=== PATIENT | female | born 1965 | race Caucasian/White ===

== ENCOUNTER → 2022-05-10 | Outpatient (CLI) | payer OTHER | LOC: M PLAIMG 09:40 | PROVIDERS: ATTEND Internal Medicine Pulmonary Disease | DX: R91.8 Other nonspecific abnormal finding of lung field (principal) ==

== ENCOUNTER 2022-06-01 06:10 | Day surgery (SDC) | payer OTHER ==
[~2022-06-01] VITALS: Ht 170.2 cm; Wt 50.8 kg
[~2022-06-01 06:10] MED LIST: AZEL1SPR3 NARES; LEVOTAB10 PO; QC F0.52 PO; VITA-243 PO
[2022-06-01] MEDS ORDERED: LR 1,000 ML IV SCH ×2 (06:35→08:30)
[2022-06-01] MEDS ORDERED: LIDOCAINE 1% SDV 5ML VIAL SC PRN (06:35)
[2022-06-01] MEDS ORDERED: EPINEPHrine 1MG/10ML SYRINGE 1.5IN As Ordered ONE (07:11)
[2022-06-01] MEDS ORDERED: CETACAINE SPRAY 5GM As Ordered ONE (07:11)
[2022-06-01] MEDS ORDERED: THROMBIN 5,000 UNITS VIAL As Ordered ONE (07:11)
[2022-06-01] MEDS ORDERED: LIDOCAINE 2% 100MG/5ML SDV (FOR ANES.) As Ordered ONE (08:01)
[2022-06-01] MEDS ORDERED: fentaNYL 100 MCG/2 ML INJECTION As Ordered ONE (08:01)
[2022-06-01] MEDS ORDERED: propofoL 200 MG/20 ML VIAL As Ordered ONE (08:01)
[2022-06-01] MEDS ORDERED: MIDAZOLAM INJ 2MG/2ML VIAL As Ordered ONE (08:01)
[2022-06-01] MEDS ORDERED: ONDANSETRON 4MG 2ML VIAL As Ordered ONE (08:01)
[2022-06-01] MEDS ORDERED: SUGAMMADEX SODIUM 500 MG/5 ML VIAL (BRIDION) As Ordered ONE (08:01)
[2022-06-01] MEDS ORDERED: ROCURONIUM BROMIDE 50MG/5ML VIAL As Ordered ONE (08:01)
[2022-06-01] MEDS ORDERED: oxyCODONE 5MG TAB PO PRN (08:30)
[2022-06-01] MEDS ORDERED: fentaNYL 100 MCG/2 ML INJECTION IV PRN (08:30)
[2022-06-01] MEDS ORDERED: ONDANSETRON 4MG 2ML VIAL IV PRN (08:30)
[2022-06-01 10:20] VITALS: BP 135/78
== END 2022-06-01 10:20 | disposition home or self-care (01) ==
LOC: M SDC 06:10
PROVIDERS: ATTEND Internal Medicine Pulmonary Disease
DX: R91.8 Other nonspecific abnormal finding of lung field (principal); J42 Unspecified chronic bronchitis; C82.90 Follicular lymphoma, unspecified, unspecified site; D80.1 Nonfamilial hypogammaglobulinemia; Z92.3 Personal history of irradiation; F17.210 Nicotine dependence, cigarettes, uncomplicated; Z79.899 Other long term (current) drug therapy; Z88.5 Allergy status to narcotic agent
CPT/HCPCS: 31623; 31624; 31627; 31628; 31654; 71045; 76000; 87070; 87102; 87116; 87205; 87206; 88104; 88108; 88305; 88313; 93005; J1100; J2250; J2405; J3010; S2900

== ENCOUNTER → 2022-06-09 | Outpatient (CLI) | payer OTHER | LOC: M CARPUL 13:21 | PROVIDERS: ATTEND Internal Medicine Pulmonary Disease | DX: R91.8 Other nonspecific abnormal finding of lung field (principal) ==